=== PATIENT | female | born 1950 | race Caucasian/White ===

== ENCOUNTER 2017-05-19 12:50 | Inpatient (IN) | payer MEDICARE, BC ==
--- NOTE | 2017-05-19 13:27 | PCM.HP ---
H&P History of Present Illness - General Date of Service: 05/19/17 Admit Problem/Dx: The patient is a 67-year-old lady with a history of MS, seizure disorder. The patient is wheelchair bound and [facility]. She was noted to have cough, sneezing associated with temperature of 100.4. She was noted to have a tachycardia with a heart rate of 135 and was transferred to [facility] clinic for further evaluation. In the clinic the patient had a chest x-ray, basic labs and was transferred to Hospital for further evaluation and treatment. Source of Information: Patient, Provider (Clinic dictation) - History of Present Illness Initial Comments - Free Text/Narative: Patient has a history of MS is a [facility] resident. She has a history of frequent urinary tract infections. She was noted to have low-grade fever, tachycardia. She was sent to the clinic where basic labs and chest x-ray was done She was referred to the hospital for further evaluation and treatment The patient is a poor historian. She says she has cough with sputum but does not know how the sputum looks like. She denies chest pain, abdominal pain, diarrhea. - Related Data Allergies/Adverse Reactions: Allergies Allergy/AdvReac Type Severity Reaction Status Date / Time Penicillins Allergy Rash Verified 05/19/17 13:29 Home Medications: Home Meds Ascorbic Acid 500 mg PO BID 07/22/14 [History] Baclofen 10 mg PO Q24H PRN 07/22/14 [History] Calcium Carbonate/Vitamin D3 [Calcium 600 + Vit D Tablet] 1 tab PO BID 07/22/14 [History] Cholecalciferol (Vitamin D3) [Vitamin D3] 1,000 units PO DAILY 07/22/14 [History ] Oxybutynin Chloride [Ditropan Xl] 10 mg PO DAILY 07/22/14 [History] Vitamin B Complex [B Complex] 1 each PO DAILY 07/22/14 [History] Vitamin E 400 unit PO DAILY 07/22/14 [History] levETIRAcetam [Keppra] 250 mg PO DAILY 07/22/14 [History] levETIRAcetam [Keppra] 500 mg PO BEDTIME 07/22/14 [History] Baclofen 20 mg PO QID 07/30/16 [History] Menthol/Methyl Salicylate [Icy Hot Cream] 1 gm TOP BID PRN #0 tube 08/11/16 [Rx] Acetaminophen [Tylenol] 650 mg PO Q4H PRN #0 tablet 08/13/16 [Rx] Sertraline HCl 25 mg PO DAILY 05/19/17 [History] Past Medical History HEENT History: Reports: Impaired Vision Other HEENT History: wears glasses Cardiovascular History: Reports: None Respiratory History: Reports: None Gastrointestinal History: Reports: None Genitourinary History: Reports: None [employer] History: Reports: None Musculoskeletal History: Reports: Other (See Below) Other Musculoskeletal History: Multiple Sclerosis Neurological History: Reports: MS, Seizure, Other (See Below) Other Neuro History: falling alot lately. Having more trouble with MS Psychiatric History: Reports: None Oncologic (Cancer) History: Reports: None Dermatologic History: Reports: None - Infectious Disease History Infectious Disease History: Reports: Chicken Pox, Measles, Mumps - Past Surgical History HEENT Surgical History: Reports: None Neurological Surgical History: Reports: None Musculoskeletal Surgical History: Reports: None Social & Family History - Family History Family Medical History: Noncontributory Cardiac: Reports: CAD (father from [place]) - Tobacco Use Smoking Status *Q: Former Smoker Years of Tobacco use: 10 Packs/Tins Daily: 1 Used Tobacco, but Quit: Yes Month Tobacco Last Used: 5 Second Hand Smoke Exposure: No - Caffeine Use Caffeine Use: Reports: Coffee Caffeine Use Comment: Daily - Alcohol Use Days Per Week of Alcohol Use: 0 - Recreational Drug Use Recreational Drug Use: No H&P Review of Systems - Review of Systems: Review Of Systems: See Below General: Reports: Fever, Malaise. Denies: Chills Pulmonary: Reports: Cough, Sputum. Denies: Shortness of Breath Cardiovascular: Denies: Chest Pain Gastrointestinal: Denies: Abdominal Pain Genitourinary: Denies: Dysuria Exam - Exam Exam: See Below - Exam General: Alert, Oriented Neck: Supple Lungs: Clear to Auscultation, Normal Respiratory Effort Cardiovascular: Regular Rate, Regular Rhythm, Tachycardia GI/Abdominal Exam: Normal Bowel Sounds, Soft, Non-Tender Extremities: No Pedal Edema Skin: Warm Neuro Extensive - Mental Status: Alert, Oriented x3, Normal Mood/Affect - Patient Data Lab Results Last 24 hrs: Laboratory studies from [facility] were reviewed White blood cell count was 9.8 hemoglobin 16.1, platelets 292. Sodium 138, potassium 4.0, bicarbonate 22.5. Bun 18, creatinine 1.0 Liver enzymes basically normal *Q Meaningful Use (ADM) - VTE *Q VTE Criteria *Q: - Stroke *Q Stroke Criteria *Q: - AMI *Q AMI Criteria *Q: - Problem List (1) Fever SNOMED Code(s): 089577408 ICD Code: R50.9 - FEVER, UNSPECIFIED Status: Acute Current Visit: Yes (2) Tachycardia SNOMED Code(s): 8665192 ICD Code: R00.0 - TACHYCARDIA, UNSPECIFIED Status: Acute Current Visit: Yes (3) Multiple sclerosis SNOMED Code(s): 63713051 ICD Code: G35 - MULTIPLE SCLEROSIS Status: Acute Current Visit: No Problem List Initiated/Reviewed/Updated: Yes Orders Last 24hrs: Active Orders 24 hr Category Date Time Status EKG 12 Lead [EKG Documentation Completion] [RC] ROUTINE Care 05/19/17 13:06 Ordered Telemetry Monitoring [Cardiac Monitoring] [RC] . Care 05/19/17 13:14 Ordered DIRECTED CULTURE BLOOD [BC] Stat Lab 05/19/17 13:07 Ordered CULTURE BLOOD [BC] Stat Lab 05/19/17 13:07 Ordered CULTURE URINE [RM] Routine Lab 05/19/17 13:07 Uncollected LACTIC ACID [CHEM] Routine Lab 05/19/17 13:12 Ordered TROPONIN I [CHEM] Routine Lab 05/19/17 13:12 Ordered UA W/MICROSCOPIC [URIN] Routine Lab 05/19/17 13:07 Uncollected Sodium Chloride 0.9% with KCl 20 mEq @ 125 mL/Hr (1000 Med 05/19/17 13:15 Ordered mL) NS + KCl 20mEq/L [Normal Saline with 20 mEq KCl] 1,000 ml IV ASDIRECTED Blood Culture x2 Reflex Set [OM.PC] Stat Oth 05/19/17 13:07 Ordered Medication Orders Potassium Chloride/Sodium Chloride (Normal Saline With 20 Meq Kcl) 1,000 mls @ 125 mls/hr IV ASDIRECTED THIAGO Assessment/Plan Comment:: The patient is a 67-year-old lady with a history of MS, seizure disorder. Presented with low-grade fever, cough, tachycardia Concern for possible sepsis Will have infectious disease workup Obtain lactic acid Start IV fluids Tachycardia Appear to have sinus tachycardia on telemetry Might relate to sepsis, infection Obtain an EKG For now treat with IV fluids Consider beta melissa if no improvement Possible infection Likely acute bronchitis The patient has cough but on chest x-ray per my reading there is no apparent infiltrate For now obtain blood culture, urine analysis and culture An influenza swab was negative in the clinic The patient has a history of frequent urinary tract infection The patient has penicillin allergy Start the patient empirically on Levofloxacin History of seizure disorder, MS Continue Keppra, baclofen Depression Treat with Zoloft DVT prophylaxis will be with subcutaneous heparin
[2017-05-19] MEDS ORDERED: Zolpidem 5 MG Tab PO PRN (13:29)
[2017-05-19] MEDS ORDERED: Menthol/Methyl Salicylate 85 GM Tube TOP PRN (13:32)
[2017-05-19] MEDS: NS + KCl 20mEq/L 1,000 ML IV SCH ×2 (14:35→23:56)
[2017-05-19] MEDS: Levofloxacin/Dextrose 5%-Water 750 MG in Premix Bag 1 BAG IV SCH (14:35)
[2017-05-19] MEDS: Ondansetron 4 MG Tab.DIS PO PRN (17:56)
[2017-05-19] MEDS: Baclofen 10 MG Tab PO SCH ×2 (17:56→21:12)
[2017-05-19] MEDS: Ibuprofen 400 MG Tab PO PRN (21:13)
[2017-05-19] MEDS: levETIRAcetam 500 MG Tab PO SCH (21:13)
[2017-05-20] MEDS: Ibuprofen 400 MG Tab PO PRN ×2 (06:27→23:40)
[2017-05-20 07:00] LABS: CHLORIDE,CL 107 mmol/L (101-111); SODIUM,NA 137 mmol/L (135-145)
[2017-05-20] MEDS: levETIRAcetam 500 MG Tab PO SCH ×2 (08:06→20:30)
[2017-05-20] MEDS: Baclofen 10 MG Tab PO SCH ×4 (08:06→20:30)
[2017-05-20] MEDS: NS + KCl 20mEq/L 1,000 ML IV SCH (08:06)
[2017-05-20] MEDS: Sertraline 50 MG Tab PO SCH (08:07)
[2017-05-20] MEDS: Oxybutynin 5 MG Tab.ER PO SCH (08:07)
[2017-05-20] MEDS: Enoxaparin 40 MG/0.4 ML Syringe SUBCUT SCH (08:08)
--- NOTE | 2017-05-20 10:43 | PCM.PN ---
- General Info Date of Service: 05/20/17 Admission Dx/Problem (Free Text): The patient is a 67-year-old lady with a history of MS, seizure disorder. The patient is wheelchair bound and lives in the [facility]. She was noted to have cough, sneezing associated with temperature of 100.4. She was noted to have a tachycardia with a heart rate of 135 and was transferred to [facility] for further evaluation. In the clinic the patient had a chest x-ray, basic labs and was transferred to Hospital for further evaluation and treatment. Subjective Update: Feeling better, had no high-grade fever overnight. No shortness of breath, no cough. No chest pain. No diarrhea. - Review of Systems General: Reports: Fever (Low-grade) Pulmonary: Denies: Shortness of Breath Cardiovascular: Denies: Chest Pain Gastrointestinal: Denies: Abdominal Pain Genitourinary: Denies: Dysuria - Patient Data Vitals - Most Recent: Last Vital Signs Temp 37.1 C 05/20/17 07:00 Pulse 105 H 05/20/17 07:00 Resp 18 05/20/17 07:00 BP 90/52 L 05/20/17 07:00 Pulse Ox 95 05/20/17 07:00 Weight - Most Recent: 75.478 kg I&O - Last 24 Hours: Intake & Output 05/19/17 05/20/17 05/20/17 22:59 06:59 14:59 Intake Total 1230 275 816 Output Total 300 650 Balance 930 -375 816 Lab Results Last 24 Hours: Laboratory Results - last 24 hr 05/19/17 05/19/17 05/19/17 Range/Units 13:40 13:40 16:30 WBC (5.0-10.0) 10^3/uL RBC (4.2-5.4) 10^6/uL Hgb (12.0-16.0) g/dL Hct (37.0-47.0) % MCV (80-100) fL MCH (27.0-34.0) pg MCHC (33.0-35.0) g/dL Plt Count (150-450) 10^3/uL Sodium (135-145) mmol/L Potassium (3.6-5.0) mmol/L Chloride (101-111) mmol/L Carbon Dioxide (21.0-31.0) mmol/L Anion Gap BUN (7-18) mg/dL Creatinine (0.6-1.3) mg/dL Est Cr Clr Drug Dosing mL/min Estimated GFR (MDRD) Glucose (74-105) mg/dL Lactic Acid 2.0 (0.5-2.2) mmol/L Calcium (8.4-10.2) mg/dl Troponin I < 0.02 (0.00-0.02) ng/ml Urine Color Yellow (YELLOW) Urine Appearance Cloudy (CLEAR) Urine pH 7.0 (5.0-9.0) Ur Specific Tinnie 1.015 (1.005-1.030) Urine Protein Trace H (NEGATIVE) Urine Glucose (UA) Negative (NEGATIVE) Urine Ketones Negative (NEGATIVE) Urine Occult Blood Negative (NEGATIVE) Urine Nitrite Negative (NEGATIVE) Urine Bilirubin Negative (NEGATIVE) Urine Urobilinogen 0.2 (0.2-1.0) mg/dL Ur Leukocyte Esterase Small H (NEGATIVE) Urine RBC 0-5 /HPF Urine WBC 5-10 H (0-5/HPF) /HPF Ur Epithelial Cells Few /HPF Urine Bacteria Many H (0-FEW/HPF) /HPF 05/20/17 05/20/17 Range/Units 06:00 06:00 WBC 4.3 L (5.0-10.0) 10^3/uL RBC 4.65 (4.2-5.4) 10^6/uL Hgb 13.5 (12.0-16.0) g/dL Hct 40.4 (37.0-47.0) % MCV 86.9 (80-100) fL MCH 29.0 (27.0-34.0) pg MCHC 33.4 (33.0-35.0) g/dL Plt Count 218 (150-450) 10^3/uL Sodium 137 (135-145) mmol/L Potassium 4.1 (3.6-5.0) mmol/L Chloride 107 (101-111) mmol/L Carbon Dioxide 24.0 (21.0-31.0) mmol/L Anion Gap 10.1 BUN 14 (7-18) mg/dL Creatinine 0.8 (0.6-1.3) mg/dL Est Cr Clr Drug Dosing 58.12 mL/min Estimated GFR (MDRD) > 60 Glucose 124 H (74-105) mg/dL Lactic Acid (0.5-2.2) mmol/L Calcium 8.5 (8.4-10.2) mg/dl Troponin I (0.00-0.02) ng/ml Urine Color (YELLOW) Urine Appearance (CLEAR) Urine pH (5.0-9.0) Ur Specific Tinnie (1.005-1.030) Urine Protein (NEGATIVE) Urine Glucose (UA) (NEGATIVE) Urine Ketones (NEGATIVE) Urine Occult Blood (NEGATIVE) Urine Nitrite (NEGATIVE) Urine Bilirubin (NEGATIVE) Urine Urobilinogen (0.2-1.0) mg/dL Ur Leukocyte Esterase (NEGATIVE) Urine RBC /HPF Urine WBC (0-5/HPF) /HPF Ur Epithelial Cells /HPF Urine Bacteria (0-FEW/HPF) /HPF Harley Results Last 24 Hours: Microbiology 05/19/17 13:40 Anaerobic Blood Culture - Final Blood - Venous 05/19/17 13:35 Anaerobic Blood Culture - Final Blood - Venous - Lab Draw Med Orders - Current: Current Medications Acetaminophen (Tylenol) 650 mg PO Q4H PRN PRN Reason: Pain (Mild 1-3)/fever Baclofen (Lioresal) 20 mg PO QID [facility] Last Admin: 05/20/17 08:06 Dose: 20 mg Enoxaparin Sodium (Lovenox) 40 mg SUBCUT DAILY [facility] Last Admin: 05/20/17 08:08 Dose: 40 mg Potassium Chloride/Sodium Chloride (Normal Saline With 20 Meq Kcl) 1,000 mls @ 125 mls/hr IV ASDIRECTED [facility] Last Admin: 05/20/17 08:06 Dose: 125 mls/hr Levofloxacin/Dextrose 750 mg/ (Premix) 150 mls @ 100 mls/hr IV Q24H [facility] Last Infusion: 05/20/17 08:05 Dose: Infused Ibuprofen (Motrin) 400 mg PO Q6H PRN PRN Reason: Pain (mild 1-3) Last Admin: 05/20/17 06:27 Dose: 400 mg Levetiracetam (Keppra) 250 mg PO DAILY [facility] Last Admin: 05/20/17 08:06 Dose: 250 mg Levetiracetam (Keppra) 500 mg PO BEDTIME [facility] Last Admin: 05/19/17 21:13 Dose: 500 mg Methyl Salicylate (Icy Hot Cream) 0 gm TOP BID PRN PRN Reason: Pain Ondansetron HCl (Zofran Odt) 4 mg PO Q6H PRN PRN Reason: Nausea Last Admin: 05/19/17 17:56 Dose: 4 mg Oxybutynin Chloride (Oxybutynin Er) 10 mg PO DAILY [facility] Last Admin: 05/20/17 08:07 Dose: 10 mg Sertraline HCl (Zoloft) 25 mg PO DAILY [facility] Last Admin: 05/20/17 08:07 Dose: 25 mg Sodium Chloride (Saline Flush) 10 ml FLUSH ASDIRECTED PRN PRN Reason: Keep Vein Open Zolpidem Tartrate (Ambien) 5 mg PO BEDTIME PRN PRN Reason: Sleep - Exam General: Alert, Oriented Neck: Supple Lungs: Clear to Auscultation, Normal Respiratory Effort Cardiovascular: Regular Rate, Regular Rhythm GI/Abdominal Exam: Normal Bowel Sounds, Soft, Non-Tender Extremities: No Pedal Edema - Problem List & Annotations (1) Fever SNOMED Code(s): 818899336 Code(s): R50.9 - FEVER, UNSPECIFIED Status: Acute Current Visit: Yes (2) Tachycardia SNOMED Code(s): 3218420 Code(s): R00.0 - TACHYCARDIA, UNSPECIFIED Status: Acute Current Visit: Yes (3) Multiple sclerosis SNOMED Code(s): 62135952 Code(s): G35 - MULTIPLE SCLEROSIS Status: Acute Current Visit: No - Problem List Review Problem List Initiated/Reviewed/Updated: Yes - My Orders Last 24 Hours: My Active Orders 05/19/17 13:07 Blood Culture x2 Reflex Set [OM.PC] Stat 05/19/17 13:14 Telemetry Monitoring [Cardiac Monitoring] [RC] 20 05/19/17 13:15 NS + KCl 20mEq/L [Normal Saline with 20 mEq KCl] 1,000 ml IV ASDIRECTED 05/19/17 13:29 Oxygen Therapy [RC] .PRN Up to Chair [RC] ASDIRECTED VTE/DVT Education [RC] , Vital Signs [RC] 03,07,11,15,19,23 Acetaminophen [Tylenol] 650 mg PO Q4H PRN Ibuprofen [Motrin] 400 mg PO Q6H PRN Sodium Chloride 0.9% [Saline Flush] 10 ml FLUSH ASDIRECTED PRN Zolpidem [Ambien] 5 mg PO BEDTIME PRN Peripheral IV Insertion Adult [OM.PC] Routine Saline Lock Insert [OM.PC] Routine Resuscitation Status Routine 05/19/17 13:30 Antiembolic Hose [OM.PC] Per Unit Routine 05/19/17 13:32 Antiembolic Devices [RC] 08,20 Peripheral IV Care [RC] 08,20 Menthol/Methyl Salicylate [Icy Hot Cream] 0 gm TOP BID PRN 05/19/17 13:35 CULTURE BLOOD [BC] Stat 05/19/17 13:40 CULTURE BLOOD [BC] Stat 05/19/17 14:00 Levofloxacin/Dextrose 5%-Water [Levaquin in D5W 750 MG/150 ML] 750 mg Premix Bag 1 bag IV Q24H 05/19/17 15:30 Patient Status [ADT] Routine 05/19/17 16:30 CULTURE URINE [RM] Routine 05/19/17 17:00 Baclofen [Lioresal] 20 mg PO QID 05/19/17 17:42 Ondansetron [Zofran ODT] 4 mg PO Q6H PRN 05/19/17 21:00 levETIRAcetam [Keppra] 500 mg PO BEDTIME 05/19/17 Dinner Mechanical Soft Diet [DIET] 05/20/17 09:00 Enoxaparin [Lovenox] 40 mg SUBCUT DAILY Oxybutynin [Oxybutynin ER] 10 mg PO DAILY Sertraline [Zoloft] 25 mg PO DAILY levETIRAcetam [Keppra] 250 mg PO DAILY 05/21/17 05:15 BASIC METABOLIC PANEL,BMP [CHEM] AM CBC WITH AUTO DIFF [HEME] AM - Plan Plan:: The patient is a 67-year-old lady with a history of MS, seizure disorder. Presented with low-grade fever, cough, tachycardia Concern for possible sepsis Continue infectious disease workup Improved, stop IV fluids Tachycardia Resolved Stop IV fluids Possible infection Likely acute bronchitis The patient has cough but on chest x-ray per my reading there is no apparent infiltrate Appears to have abnormal UA Pending blood culture, urine culture An influenza swab was negative in the clinic The patient has a history of frequent urinary tract infection The patient has penicillin allergy Started the patient empirically on Levofloxacin History of seizure disorder, MS Continue Keppra, baclofen Depression Treat with Zoloft
[2017-05-20] MEDS: Acetaminophen 325 MG Tab PO PRN ×2 (11:55→20:30)
[2017-05-20] MEDS: Levofloxacin/Dextrose 5%-Water 750 MG in Premix Bag 1 BAG IV SCH (14:19)
[2017-05-20] MEDS: Ondansetron 4 MG Tab.DIS PO PRN (18:20)
[2017-05-21 07:03] LABS: CHLORIDE,CL 105 mmol/L (101-111); SODIUM,NA 137 mmol/L (135-145)
[2017-05-21] MEDS: Sertraline 50 MG Tab PO SCH (09:26)
[2017-05-21] MEDS: Oxybutynin 5 MG Tab.ER PO SCH (09:26)
[2017-05-21] MEDS: levETIRAcetam 500 MG Tab PO SCH ×2 (09:27→20:53)
[2017-05-21] MEDS: Baclofen 10 MG Tab PO SCH ×4 (09:27→20:53)
[2017-05-21] MEDS: Enoxaparin 40 MG/0.4 ML Syringe SUBCUT SCH (09:28)
[2017-05-21] MEDS: Sodium Chloride 0.9% 10 ML Syringe FLUSH PRN ×2 (09:31→13:50)
[2017-05-21] MEDS: Levofloxacin/Dextrose 5%-Water 750 MG in Premix Bag 1 BAG IV SCH (13:43)
[2017-05-21] MEDS: Acetaminophen 325 MG Tab PO PRN (13:48)
[2017-05-21] MEDS: Ibuprofen 400 MG Tab PO PRN (20:54)
[2017-05-22] MEDS: Acetaminophen 325 MG Tab PO PRN ×2 (01:47→10:24)
[2017-05-22] MEDS: levETIRAcetam 500 MG Tab PO SCH (10:21)
[2017-05-22] MEDS: Oxybutynin 5 MG Tab.ER PO SCH (10:22)
[2017-05-22] MEDS: Sertraline 50 MG Tab PO SCH (10:23)
[2017-05-22] MEDS: Baclofen 10 MG Tab PO SCH ×2 (10:23→14:23)
[2017-05-22] MEDS: Enoxaparin 40 MG/0.4 ML Syringe SUBCUT SCH (10:25)
[2017-05-22] MEDS: Sodium Chloride 0.9% 10 ML Syringe FLUSH PRN (10:27)
[2017-05-22 11:41] VITALS: BP 115/57
--- NOTE | 2017-05-22 11:41 | PN ---
DATE: 05/21/2017 HISTORY OF PRESENT ILLNESS: Beatriz is a 67-year-old lady, who is a resident of the [facility]. She was seen at the [facility] on May 19 when she presented with cough and fever. She also has a long history of recurrent urinary tract infections. A PA and lateral chest were performed at the clinic and showed subtle increased densities particularly in the left lower lobe which may represent atelectasis, but developing pneumonitis could not be excluded. No other infiltrates were seen. There is also a large hiatal hernia in the lower middle mediastinum that was not apparent on September 2014 study. She was referred to the hospital for further evaluation. Labs were also performed at the clinic, CBC showed a white count of 9.8, hemoglobin and hematocrit were 16 and 47. Rapid influenza testing for A and B were both negative. Comprehensive metabolic profile showed BUN and creatinine of 18 and 1.0 with a GFR of 55. Blood sugar was 143. Remainder of studies were unremarkable. Urinalysis was ordered, but not collected. On admission to the hospital, lactic acid was normal at 2.0. Troponin was negative at less than 0.02. Urinalysis was collected which showed a cloudy yellow urine with a specific gravity 1.015, 5 to 10 white cells, and many bacteria. Urine culture was positive for strep bovis sensitive to the levofloxacin she is receiving. Repeat lab work done today shows a white count of 5.1 with a normal differential, normal electrolytes. Renal function is intact. Review of her clinical data shows that she is taking adequate fluids. She is voiding and moving her bowels. She is tolerating her diet and appetite is improving. Vital signs have been stable. She has remained afebrile since admission. PHYSICAL EXAMINATION: General: On exam, she is seen in her room. She has good spirits. She feels well. She voices no new concerns or complaints. She denies any chest pain or shortness of breath. No calf or leg pain. Vital Signs: Blood pressure 120/64, pulse 86, respiratory rate 20, oxygen saturation 95% on room air, and she is afebrile. HEENT: Unremarkable. ENT was clear. Chest: Showed clear but diminished bilateral breath sounds. Heart: Showed regular rate and rhythm. Abdomen: Soft and benign. Extremities: Showed chronic lower extremity edema. Neuro: Neurologically, grossly intact. She continues on levofloxacin 750 mg daily as well as her usual medications. She is on enoxaparin for VTE prophylaxis. No other changes are made in her care today. We are probably looking at discharge back to [facility] tomorrow. MOD /[id number]
--- NOTE | 2017-05-22 14:14 | DISCH ---
DISCHARGE DIAGNOSES: 1. Urinary tract infection, culture positive for Streptococcus bovis. 2. Tachycardia on admission, resolved. 3. Chest x-ray done prior to admission, could not exclude the possibility of a left-sided lower lobe infiltrate. 4. Multiple sclerosis by history, stable. 5. Seizure disorder by history, stable. BRIEF HISTORY OF PRESENT ILLNESS: Beatriz is a 67-year-old lady, who is a resident of the [facility]. She was seen in clinic when she presented with fever, cough, and tachycardia. Chest x-ray done in clinic could not exclude a left lower lobe infiltrate versus atelectasis, and she was referred to the hospital for further evaluation and management. On Evaluation at the hospital, she was found to have urinary tract infection, and was admitted for treatment. PERTINENT LABS AND X-RAYS: Repeat CBC showed a white count of 5.1, hemoglobin and hematocrit 12.7 and 37.8, platelets were normal. Electrolytes were normal. BUN and creatinine were 12 and 0.7, with a GFR of more than 60. Lactic acid was normal at 2.0. Troponin was negative at less than 0.02. Urinalysis showed 5 to 10 white cells, with many bacteria. Two sets of blood cultures remained without growth. Urine culture was positive for Streptococcus bovis, sensitive to levofloxacin. A 12-lead EKG was performed at the time of admission and showed a sinus tachycardia with a ventricular rate of 117. Normal axis and intervals. No acute ST-T wave changes. HOSPITAL COURSE: Beatriz was admitted as an inpatient. She was started on IV fluids and levofloxacin 750 mg IV every 24 hours. She was placed on enoxaparin for VTE prophylaxis, and her usual medications were continued. She has done well. She has defervesced. She voices no new concerns or complaints. She feels she is ready to be discharged back to [facility] today PHYSICAL EXAMINATION: General: She is seated in bed. She voices no concerns or complaints. Vital Signs: Blood pressure 128/73, pulse 91, respiratory rate 20, oxygen saturation 97% on room air. She is afebrile. Weight 166 pounds, 6.4 ounces. HEENT: Unremarkable. ENT is clear. Chest: Clear. Heart: Regular. Abdomen: Benign. Extremities: Showed chronic edema. Neuro: Neurologically, she is intact. IMPRESSION: A 67-year-old lady with long history of multiple sclerosis, presented with fever, cough, and tachycardia, which have resolved. She is currently being treated with levofloxacin to cover both the possibility of a left lower lobe infiltrate and for urinary tract infection. PLAN: 1. She will continue usual medications. 2. We will continue her on levofloxacin 750 mg daily for another week. 3. She will follow up with her usual care provider at the clinic. CONDITION AT THE TIME OF DISCHARGE: Improved and stable. CODE STATUS: Code status during this admission: Full code. [facility] /[id number]
[2017-05-22] MEDS: Levofloxacin/Dextrose 5%-Water 750 MG in Premix Bag 1 BAG IV SCH (14:23)
--- NOTE | 2017-05-28 14:06 | EKG ---
05/19/2017- JULIETTE HAWKINS - EKG per my reading shows sinus tachycardia at the rate of 115. [facility] /[id number]
== END 2017-05-22 12:30 | DRG 690 ==
LOC: DL.MS 12:50 → UNDOADMOB 12:50 → DL.MS 13:29 → OBSVTOIN 15:29 → INTOOBSV 15:29 → DL.MS 15:30 → OBSVTOIN 15:30
PROVIDERS: ADMIT Internal Medicine; ATTEND Internal Medicine
DX: N39.0 Urinary tract infection, site not specified (principal); B95.5 Unspecified streptococcus as the cause of diseases classified elsewhere; R00.0 Tachycardia, unspecified; G35 Multiple sclerosis; G40.909 Epilepsy, unspecified, not intractable, without status epilepticus; Z87.891 Personal history of nicotine dependence; J20.9 Acute bronchitis, unspecified; Z99.3 Dependence on wheelchair
CPT/HCPCS: 36415; 83605; 84484; 87040 ×2; 87088; 93005; 93010; J1956; J3480; 80048; 81001; 85025; 85027; 87086; 87186; A9270-GY; J1650; J7050